=== PATIENT | male | born 1965 | race Caucasian/White ===

== ENCOUNTER 2020-01-11 18:54 | Inpatient (IN) | payer MEDICAID ==
[~2020-01-11] VITALS: Ht 175.3 cm; Wt 81.8 kg
[2020-01-11] MEDS ORDERED: heparin 25,000 UNIT/250ml bag 250 ML IV SCH ×2 (19:10→20:35)
[2020-01-11 19:15] LABS: BASOPHILS # (AUTO) 0.1 X10'3 (0-0.2); BASOPHILS % (AUTO) 0.6 % (0-1); EOSINOPHILS % (AUTO) 0.2 % (0-6); HEMATOCRIT 46.1 % (42.0-52.0); HEMOGLOBIN 15.4 g/dl (14.0-17.9); LYMPHOCYTES # (AUTO) 2.7 X10'3 (1.1-4.8); LYMPHOCYTES % (AUTO) 17.9 % (21-51); MEAN CORPUSCULAR HEMOGLOBIN 32.4 PG (27.0-31.0); MEAN CORPUSCULAR HGB CONC 33.5 g/dL (33.0-36.5); MEAN CORPUSCULAR VOLUME 96.9 FL (78-98); MEAN PLATELET VOLUME 6.6 FL (7.4-10.4); MONOCYTES # (AUTO) 0.6 X10'3 (0-0.9); NEUTROPHILS # (AUTO) 11.6 X10'3 (1.8-7.7); NEUTROPHILS % (AUTO) 77.3 % (42-75); PLATELET COUNT 243 X10'3 (140-440); RED BLOOD COUNT 4.76 X10'6 (4.70-6.10); RED CELL DISTRIBUTION WIDTH 13.8 % (11.5-14.5)
[2020-01-11] MEDS ORDERED: heparin 10,000 units/1 ML INJ IV PRN ×2 (19:20→20:35)
[2020-01-11 19:27] LABS: ALANINE AMINOTRANSFERASE 34 U/L (12-78); ALBUMIN 3.9 G/DL (3.4-5.0); ALBUMIN/GLOBULIN RATIO 1.5 (1.1-1.5); ALKALINE PHOSPHATASE 78 IU/L (46-116); ANION GAP 8 (8-16); ASPARTATE AMINO TRANSFERASE 33 U/L (10-37); BILIRUBIN,TOTAL 0.8 MG/DL (0.1-1.0); BLOOD UREA NITROGEN 12 MG/DL (7-18); BUN/CREATININE RATIO 10.7 (5.4-32.0); CALCIUM 7.9 MG/DL (8.5-10.1); CHLORIDE 108 MMOL/L (99-107); CREATININE 1.12 MG/DL (0.60-1.10); GLUCOSE 104 MG/DL (70-104); PARTIAL THROMBOPLASTIN TIME 41 SECONDS (22-32); POTASSIUM 4.1 MMOL/L (3.5-5.1); SODIUM 143 MMOL/L (135-145); TOTAL CARBON DIOXIDE 27.3 MMOL/L (24-32); TOTAL PROTEIN 6.5 G/DL (6.4-8.2); eGFR 69 ML/MIN
[2020-01-11] MEDS: heparin 25,000 UNIT/250ml bag 250 ML IV SCH (20:04)
--- NOTE | 2020-01-11 20:18 | NUR ---
PT GIVEN TURKEY SANDWICH AND JUICE UPON REQUEST, CLEARED WITH RICKI GONZALEZ
[2020-01-11] MEDS ORDERED: magnesium hydroxide 30ml (MOM) UD suspension PO PRN (20:35)
[2020-01-11] MEDS ORDERED: nitroGLYCERIN 0.4mg SUBLingual tab SL PRN (20:35)
[2020-01-11] MEDS ORDERED: ondansetron/PF 4mg/2ml inj IV PRN (20:35)
[2020-01-11] MEDS ORDERED: morphine 2 MG/ML inj. syringe IV PRN (20:35)
[2020-01-11] MEDS ORDERED: potassium CL 10mEq/100ml bag 100 ML IV PRN ×2 (20:35)
[2020-01-11] MEDS ORDERED: nicotine 21mg patch - 24 hr TD ONE (20:35)
[2020-01-11] MEDS ORDERED: morphine 4 MG/ML inj SYRINge IV PRN (20:35)
[2020-01-11] MEDS ORDERED: magnesium Cl slow-release 64mg tablet PO PRN (20:35)
[2020-01-11] MEDS ORDERED: potassium Cl 20 mEq SR tablet PO PRN ×2 (20:35)
[2020-01-11] MEDS ORDERED: acetaminophen 325mg tablet PO PRN ×2 (20:35)
[2020-01-11] MEDS ORDERED: magnesium 4gm in 100ml NS 100 ML IV PRN (20:35)
[2020-01-11] MEDS ORDERED: magnesium 2GM in 50ml NS 50 ML IV PRN (20:35)
[2020-01-11] MEDS: normal saline 1000ml 1,000 ML IV SCH (21:13)
[2020-01-12] VITALS (24 sets, daily range): BP systolic 95–125; BP diastolic 54–81
[2020-01-12 01:25] LABS: BASOPHILS # (AUTO) 0.1 X10'3 (0-0.2); EOSINOPHILS # (AUTO) 0.3 X10'3 (0-0.9); MONOCYTES # (AUTO) 0.9 X10'3 (0-0.9); NEUTROPHILS # (AUTO) 5.6 X10'3 (1.8-7.7); RED CELL DISTRIBUTION WIDTH 13.7 % (11.5-14.5)
[2020-01-12 01:28] LABS: EOSINOPHILS % (AUTO) 2.4 % (0-6); HEMATOCRIT 42.7 % (42.0-52.0); HEMOGLOBIN 14.6 g/dl (14.0-17.9); LYMPHOCYTES # (AUTO) 4.2 X10'3 (1.1-4.8); LYMPHOCYTES % (AUTO) 37.7 % (21-51); MEAN CORPUSCULAR HEMOGLOBIN 33.3 PG (27.0-31.0); MEAN CORPUSCULAR HGB CONC 34.1 g/dL (33.0-36.5); MEAN CORPUSCULAR VOLUME 97.5 FL (78-98); MEAN PLATELET VOLUME 6.8 FL (7.4-10.4); MONOCYTES % (AUTO) 7.9 % (2-12); PLATELET COUNT 217 X10'3 (140-440); RED BLOOD COUNT 4.38 X10'6 (4.70-6.10)
[2020-01-12 01:29] LABS: HEMOGLOBIN A1C 5.5 % (4.5-6.2)
[2020-01-12 01:33] LABS: PARTIAL THROMBOPLASTIN TIME 40 SECONDS (22-32)
[2020-01-12 01:34] LABS: ALANINE AMINOTRANSFERASE 32 U/L (12-78); ALBUMIN 3.5 G/DL (3.4-5.0); ALBUMIN/GLOBULIN RATIO 1.4 (1.1-1.5); ALKALINE PHOSPHATASE 73 IU/L (46-116); ANION GAP 6 (8-16); ASPARTATE AMINO TRANSFERASE 47 U/L (10-37); BILIRUBIN,TOTAL 0.7 MG/DL (0.1-1.0); BLOOD UREA NITROGEN 13 MG/DL (7-18); BUN/CREATININE RATIO 12.3 (5.4-32.0); CALCIUM 7.9 MG/DL (8.5-10.1); CHLORIDE 106 MMOL/L (99-107); CREATININE 1.06 MG/DL (0.60-1.10); GLUCOSE 92 MG/DL (70-104); POTASSIUM 3.8 MMOL/L (3.5-5.1); SODIUM 140 MMOL/L (135-145); TOTAL CARBON DIOXIDE 28.5 MMOL/L (24-32); eGFR 73 ML/MIN
[2020-01-12 01:37] LABS: CHOL/HDL RATIO 4.2 (0.00-4.99); CHOLESTEROL 163 MG/DL (0-200); HDL CHOLESTEROL 39 MG/DL (35-60); LDL CHOLESTEROL 99 MG/DL (50-100); MAGNESIUM 1.8 MG/DL (1.5-2.4); PHOSPHORUS 3.9 MG/DL (2.3-4.5); TRIGLYCERIDES 109 MG/DL (20-135)
--- NOTE | 2020-01-12 02:13 | NUR ---
ATTEMPTED TO CALL [facility] ABOUT PT CRITICAL LAB VALUE - TROPONIN 16.22. LEFT MESSAGE.
--- NOTE | 2020-01-12 07:04 | NUR ---
Report received from leonarda RN at 0630. Pt resting comfortably in bed, no distress, asking for food. Last PTT at 0113, will order another PTT for now.
[2020-01-12] MEDS ORDERED: nicotine 21mg patch - 24 hr TD SCH ×2 (08:00→21:00)
--- NOTE | 2020-01-12 08:30 | NUR ---
pt arrived to unit at this time. he is alert and oriented. VS WNL's. pt belongings are at bedside. continue to monitor.
[2020-01-12] MEDS: aspirin 81mg tab.chew PO SCH (09:06)
[2020-01-12] MEDS: normal saline 1000ml 1,000 ML IV SCH ×2 (09:06→20:56)
[2020-01-12] MEDS: pantoprazole 40mg Tablet.DR PO SCH (09:07)
[2020-01-12] MEDS: docusate sod 100mg capsule PO SCH ×2 (09:07→19:46)
[2020-01-12] MEDS: carVEDilol 3.125mg tablet PO SCH ×2 (09:09→19:46)
[2020-01-12] MEDS: heparin 25,000 UNIT/250ml bag 250 ML IV SCH (09:30)
--- NOTE | 2020-01-12 10:15 | NUR ---
i called Dr Prieto's office at this time because the supervisor labor gang and the nursing spa supervisor both are unaware of what time he is going to the supervisor labor gang. i called the office to find out the time and if he is able to eat, since he has not eaten so far today. Dr Prieto's office was unaware of what time either, and said they would get back to me.
[2020-01-12] MEDS ORDERED: NO HOME MEDS (10:36)
--- NOTE | 2020-01-12 11:45 | NUR ---
i called Dr Prieto's office again at this time to find out the time of labeling strategist. they said they would chat with the MD and give me a call back
--- NOTE | 2020-01-12 12:00 | NUR ---
dr Prieto called me back at this time. he said that the pt will be scheduled for [id number]. he stated that it was okay to give the patient a snack/light lunch at this time and them be NPO afterward.
--- NOTE | 2020-01-12 16:48 | NUR ---
Dr Prieto came was at bedside at this time to consent the pt. i let him know that it was time to restart the heparin drip per protocol, and he stated to just keep it off until he went to the laboratory chemist.
[2020-01-12] MEDS ORDERED: nitroGLYCERIN-Tridil 50MG/D5W 250 ML IV ONE (16:54)
[2020-01-12] MEDS ORDERED: verapamil 2.5 mg/ml inj IV ONE (16:54)
[2020-01-12] MEDS ORDERED: midazolam 2 mg/2 ml injection ONE ×2 (16:54→17:47)
[2020-01-12] MEDS ORDERED: LIDOcaine 1% (10mg/ml)w/preservative injection 20ml MDV ONE (16:55)
[2020-01-12] MEDS ORDERED: heparin 1,000unit/ml 10ml vial 10 ML ONE (16:55)
[2020-01-12] MEDS ORDERED: iohexol 350MG/ML 100ml bottle IV ONE (16:55)
[2020-01-12] MEDS ORDERED: fentaNYL/PF 50MCG/1 ML 2ML syringe ONE (16:55)
--- NOTE | 2020-01-12 17:25 | NUR ---
pt left to wharf labourer at this time
[2020-01-12] MEDS ORDERED: ticagrelor 90mg tablet ONE (18:09)
--- NOTE | 2020-01-12 18:12 | NUR ---
Problems reprioritized. Patient report given, questions answered & plan of care reviewed with Temo SOSA.
[2020-01-12] MEDS ORDERED: HYDROcodone/acetaminophen 5mg/325mg tablet PO PRN (19:35)
[2020-01-12] MEDS ORDERED: HYDROcodone/acetaminophen 10/325mg tab PO PRN (19:35)
[2020-01-12] MEDS ORDERED: OXAZEpam 15mg capsule PO PRN (19:35)
[2020-01-12] MEDS: atorvastatin 20mg tablet PO SCH (19:46)
[2020-01-12] MEDS ORDERED: atorvastatin 10mg tablet PO SCH (20:00)
--- NOTE | 2020-01-12 22:25 | NUR ---
At approx 2200 I found approx 25cc of blood pooled on blanket from patient's radial cath site. However, it had already stopped bleeding. Up until that point, Cath site had been asymptomatic with interval releases of air from compression band. I re-inflated the band and will start over with releasing pressure
[2020-01-13] VITALS (11 sets, daily range): BP systolic 100–130; BP diastolic 57–70
--- NOTE | 2020-01-13 01:32 | NUR ---
Radial artery compression band removed. no further bleeding. no hematoma
[2020-01-13 06:08] LABS: PARTIAL THROMBOPLASTIN TIME 25 SECONDS (22-32)
[2020-01-13 06:17] LABS: ALANINE AMINOTRANSFERASE 35 U/L (12-78); ALBUMIN 3.2 G/DL (3.4-5.0); ALBUMIN/GLOBULIN RATIO 1.3 (1.1-1.5); ALKALINE PHOSPHATASE 68 IU/L (46-116); ANION GAP 9 (8-16); ASPARTATE AMINO TRANSFERASE 28 U/L (10-37); BILIRUBIN,TOTAL 0.8 MG/DL (0.1-1.0); BLOOD UREA NITROGEN 11 MG/DL (7-18); BUN/CREATININE RATIO 12.2 (5.4-32.0); CALCIUM 8.1 MG/DL (8.5-10.1); CHLORIDE 108 MMOL/L (99-107); GLUCOSE 86 MG/DL (70-104); MAGNESIUM 1.8 MG/DL (1.5-2.4); PHOSPHORUS 2.6 MG/DL (2.3-4.5); POTASSIUM 3.9 MMOL/L (3.5-5.1); SODIUM 142 MMOL/L (135-145); TOTAL CARBON DIOXIDE 25.5 MMOL/L (24-32); TOTAL PROTEIN 5.7 G/DL (6.4-8.2); eGFR 89 ML/MIN
[2020-01-13 06:25] LABS: BASOPHILS % (AUTO) 0.6 % (0-1); EOSINOPHILS # (AUTO) 0.2 X10'3 (0-0.9); EOSINOPHILS % (AUTO) 3.5 % (0-6); HEMATOCRIT 41.3 % (42.0-52.0); HEMOGLOBIN 14.1 g/dl (14.0-17.9); LYMPHOCYTES % (AUTO) 30.4 % (21-51); MEAN CORPUSCULAR HEMOGLOBIN 33.2 PG (27.0-31.0); MEAN CORPUSCULAR HGB CONC 34.2 g/dL (33.0-36.5); MEAN PLATELET VOLUME 6.9 FL (7.4-10.4); MONOCYTES # (AUTO) 0.5 X10'3 (0-0.9); MONOCYTES % (AUTO) 7.9 % (2-12); NEUTROPHILS # (AUTO) 3.9 X10'3 (1.8-7.7); NEUTROPHILS % (AUTO) 57.6 % (42-75); PLATELET COUNT 192 X10'3 (140-440); RED BLOOD COUNT 4.25 X10'6 (4.70-6.10); RED CELL DISTRIBUTION WIDTH 13.3 % (11.5-14.5); WHITE BLOOD COUNT 6.7 X10'3 (4.5-11.0)
[2020-01-13] MEDS: atorvastatin 20mg tablet PO SCH (07:54)
[2020-01-13] MEDS: docusate sod 100mg capsule PO SCH (07:55)
[2020-01-13] MEDS: pantoprazole 40mg Tablet.DR PO SCH (07:55)
[2020-01-13] MEDS: aspirin 81mg tab.chew PO SCH (07:55)
[2020-01-13] MEDS: carVEDilol 3.125mg tablet PO SCH (07:56)
[2020-01-13] MEDS ORDERED: ticagrelor 90mg tablet PO SCH (08:00)
[2020-01-13] MEDS ORDERED: NITR0.4T51 SL (10:47)
[2020-01-13] MEDS ORDERED: TICA90TA PO (10:47)
[2020-01-13] MEDS ORDERED: ATOR20TA66 PO (10:47)
[2020-01-13] MEDS ORDERED: NICO-687 TD (10:47)
[2020-01-13] MEDS ORDERED: COR3.125T PO (10:47)
--- NOTE | 2020-01-13 10:55 | NUR ---
pt. up independent in room; no need for acute PT per nursing
--- NOTE | 2020-01-13 12:15 | NUR ---
pt discharged via wheelchair at 1210. all belongings sent with pt. all questions answered and discharge instructions were discussed at length.
== END 2020-01-13 12:22 | disposition home or self-care (01) | DRG 190 ==
LOC: ER 18:54 → ED HOLD 20:33 → CICU 2S 01-12 09:19
PROVIDERS: ADMIT Internal Medicine Critical Care Medicine; ATTEND Internal Medicine Critical Care Medicine
PROC: 3E07317 Introduction of Other Thrombolytic into Coronary Artery, Percutaneous Approach (ICD-10-PCS; principal; 2020-01-12)
PROC: B2110ZZ Fluoroscopy of Multiple Coronary Arteries using High Osmolar Contrast (ICD-10-PCS; 2020-01-12)
DX: I21.19 ST elevation (STEMI) myocardial infarction involving other coronary artery of inferior wall (principal); I25.10 Atherosclerotic heart disease of native coronary artery without angina pectoris; F17.210 Nicotine dependence, cigarettes, uncomplicated; I25.2 Old myocardial infarction; Z95.5 Presence of coronary angioplasty implant and graft
CPT/HCPCS: 36415; 71045; 80053; 80061; 83036; 83735; 83880; 84100; 84484; 85025; 85610; 85730; 87081; 93005; 93306; 93308; 93454; 96374; 99152; 99153; 99291; A4620; A5120; C1769; C1894; G0378; J1644; J2001; J2250; J2270; J3010; J3490; J7030; Q9967